=== PATIENT | male | born 1930 | race Caucasian/White ===

== ENCOUNTER 2017-11-17 17:45 | Inpatient (IN) | payer MEDICARE, OTHER ==
[~2017-11-17] VITALS: Ht 195.6 cm; Wt 90.0 kg
[~2017-11-17 17:45] MED LIST: ASPI-99 PO; BUME1TAB PO; CALC600T34 PO; EZET10 PO; HYDR10TA16 PO; METO10TA PO; MULT-65 PO; OMEGCAP2 PO; POTA25TA4 PO; VITA-13 PO; ZOLP10TA3 PO
[2017-11-17 17:57] VITALS: BP 150/69; PULSE 70; RESP 18; TEMP 98.2; O2SAT 97
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
[2017-11-17 18:49] LABS: BASOPHIL % 0.4 % (0.0-2.0); EOSINOPHIL # 0.1 TH/MM3 (0-0.4); EOSINOPHIL % 0.8 % (0.0-4.0); HEMATOCRIT 31.7 % (39.0-51.0); HEMOGLOBIN 10.6 GM/DL (13.0-17.0); LYMPH % 23.5 % (9.0-44.0); LYMPHOCYTE # 1.4 TH/MM3 (1.0-4.8); MEAN CELL VOLUME 95.4 FL (80.0-100.0); MEAN CORPUSCULAR HEMOGLOBIN 31.7 PG (27.0-34.0); MEAN CORPUSCULAR HGB CONC 33.3 % (32.0-36.0); MEAN PLATELET VOLUME 8.4 FL (7.0-11.0); MONO % 9.5 % (0.0-8.0); MONOCYTE # 0.6 TH/MM3 (0-0.9); NEUT % 65.8 % (16.0-70.0); PLATELET COUNT 143 TH/MM3 (150-450); RED BLOOD COUNT 3.32 MIL/MM3 (4.50-5.90); RED CELL DISTRIBUTION WIDTH 14.8 % (11.6-17.2); WHITE BLOOD COUNT 6.1 TH/MM3 (4.0-11.0)
[2017-11-17 18:51] LABS: BILIRUBIN, URINE NEG (NEG); BLOOD, URINE TRACE (NEG); GLUCOSE,URINE NEG (NEG); HYALINE CAST, URINE 2 /lpf (RARE); KETONE, URINE NEG (NEG); MUCUS URINE FEW /lpf (OCC); NITRITE,URINE NEG (NEG); PH, URINE 5.5 (5.0-8.5); URINE COLOR YELLOW (YELLW/STRAW); URINE LEUKOCYTE ESTERASE NEG (NEG)
[2017-11-17 19:11] LABS: ALBUMIN 4.3 GM/DL (3.4-5.0); AST (GOT) 28 U/L (15-37); BICARBONATE 20.6 MEQ/L (21.0-32.0); BLOOD UREA NITROGEN 63 MG/DL (7-18); CALCIUM 9.2 MG/DL (8.5-10.1); CHLORIDE 107 MEQ/L (98-107); CREATININE 2.69 MG/DL (0.60-1.30); GLOMERULAR FILTRATION RATE 23 ML/MIN (>89); GLUCOSE,RANDOM 75 MG/DL (74-106); SODIUM (NA) 140 MEQ/L (136-145)
[2017-11-17 19:12] LABS: ALT (GPT) 31 U/L (12-78)
[2017-11-17 19:22] LABS: ALKALINE PHOSPHATASE 77 U/L (45-117); TOTAL BILIRUBIN ADULT 1.3 MG/DL (0.2-1.0); TOTAL PROTEIN 7.3 GM/DL (6.4-8.2)
--- NOTE | 2017-11-17 21:07 | PD ---
Physical Exam Narrative Patient was seen by my operations administrative assistant and signed out to me. Data Data Last Documented VS Vital Signs Date Time Temp Pulse Resp B/P (MAP) Pulse Ox O2 Delivery O2 Flow Rate FiO2 11/17/17 18:03 70 18 11/17/17 17:57 98.2 150/69 (96) 97 Orders Orders Complete Blood Count With Diff (11/17/17 17:49) Comprehensive Metabolic Panel (11/17/17 17:49) Thyroid Stimulating Hormone (11/17/17 17:49) Urinalysis - C+S If Indicated (11/17/17 17:49) Psych Screen (11/17/17 17:49) Drug Screen, Random Urine (11/17/17 17:49) Alcohol (Ethanol) (11/17/17 17:49) Ns (Bolus) Inj (11/17/17 21:15) Labs Laboratory Tests Test 11/17/17 18:11 White Blood Count 6.1 TH/MM3 Red Blood Count 3.32 MIL/MM3 Hemoglobin 10.6 GM/DL Hematocrit 31.7 % Mean Corpuscular Volume 95.4 FL Mean Corpuscular Hemoglobin 31.7 PG Mean Corpuscular Hemoglobin Concent 33.3 % Red Cell Distribution Width 14.8 % Platelet Count 143 TH/MM3 Mean Platelet Volume 8.4 FL Neutrophils (%) (Auto) 65.8 % Lymphocytes (%) (Auto) 23.5 % Monocytes (%) (Auto) 9.5 % Eosinophils (%) (Auto) 0.8 % Basophils (%) (Auto) 0.4 % Neutrophils # (Auto) 4.0 TH/MM3 Lymphocytes # (Auto) 1.4 TH/MM3 Monocytes # (Auto) 0.6 TH/MM3 Eosinophils # (Auto) 0.1 TH/MM3 Basophils # (Auto) 0.0 TH/MM3 CBC Comment DIFF FINAL Differential Comment Urine Color YELLOW Urine Turbidity CLEAR Urine pH 5.5 Urine Specific [place] 1.010 Urine Protein NEG mg/dL Urine Glucose (UA) NEG mg/dL Urine Ketones NEG mg/dL Urine Occult Blood TRACE Urine Nitrite NEG Urine Bilirubin NEG Urine Urobilinogen LESS THAN 2.0 MG/DL Urine Leukocyte Esterase NEG Urine RBC 3 /hpf Urine Hyaline Casts 2 /lpf Urine Mucus FEW /lpf Microscopic Urinalysis Comment CULT NOT INDICATED Blood Urea Nitrogen 63 MG/DL Creatinine 2.69 MG/DL Random Glucose 75 MG/DL Total Protein 7.3 GM/DL Albumin 4.3 GM/DL Calcium Level 9.2 MG/DL Alkaline Phosphatase 77 U/L Aspartate Amino Transf (AST/SGOT) 28 U/L Alanine Aminotransferase (ALT/SGPT) 31 U/L Total Bilirubin 1.3 MG/DL Sodium Level 140 MEQ/L Potassium Level 4.2 MEQ/L Chloride Level 107 MEQ/L Carbon Dioxide Level 20.6 MEQ/L Anion Gap 12 MEQ/L Estimat Glomerular Filtration Rate 23 ML/MIN Thyroid Stimulating Hormone 3rd Gen 1.300 uIU/ML Urine Opiates Screen NEG Urine Barbiturates Screen NEG Urine Amphetamines Screen NEG Urine Benzodiazepines Screen NEG Urine Cocaine Screen NEG Urine Cannabinoids Screen NEG Ethyl Alcohol Level 106 MG/DL [facility] Supervised Visit with NANDA: Yes Interpretation(s) CBC WBC 6.1 hemoglobin 10.6 hematocrit 31.7. Platelet 143. Normal differential. Bicarb 20.6. BUN 63. Creatinine 2.69. GFR 23. Urine drug screen negative. Alcohol 106. UA is negative. Diagnosis Primary Impression: Adjustment disorder Qualified Codes: F43.25 - Adjustment disorder with mixed disturbance of emotions and conduct Additional Impression: Chronic kidney disease (CKD) stage G4/A1, severely decreased glomerular filtration rate (GFR) between 15-29 mL/min/1.73 square meter and albuminuria creatinine ratio less than 30 mg/g Condition: Stable Mack Langston MD Nov 17, 2017 21:07
[2017-11-17] MEDS ORDERED: SODIUM CHLORID 0.9% 500 ML INJ 500 ML IV ONE (21:15)
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
[2017-11-17] MEDS ORDERED: BISACODYL 10 MG SUPP RECTAL PRN (21:45)
[2017-11-17] MEDS ORDERED: SENNOSIDES 8.6 MG TAB PO PRN (21:45)
[2017-11-17] MEDS ORDERED: LACTULOSE SYRUP 20 GM/30 ML CUP PO PRN (21:45)
[2017-11-17] MEDS ORDERED: SODIUM CHLORIDE 0.9% FLUSH 10 ML FLUSH IV FLUSH PRN (21:45)
[2017-11-17] MEDS ORDERED: ACETAMINOPHEN 325 MG TAB PO PRN (21:45)
[2017-11-17] MEDS ORDERED: MAGNESIUM HYDROXIDE SUSP 30 ML CUP PO PRN (21:45)
[2017-11-17] MEDS: SODIUM CHLOR 0.9% 1000 ML INJ 1,000 ML IV SCH (21:47)
--- NOTE | 2017-11-17 21:50 | RADRPT ---
EXAM DATE: 11/17/2017 9:42 PM EDT AGE/SEX: 87 years / Male INDICATIONS: SOB CLINICAL DATA: This is the patient's initial encounter. Patient reports that signs and symptoms have been present for 1 day and indicates a pain score of 0/10. MEDICAL/SURGICAL HISTORY: . Former smoker <40 years ago. Pacemaker. Open heart surgery 2007 COMPARISON: No prior exams available for comparison. FINDINGS: Cardiomegaly present. Postoperative CABG. Pacer leads overlie right atrium and right ventricle and co ronary sinus. No pneumothorax or significant effusion. CONCLUSION: Cardiomegaly with minimal basilar atelectasis or scarring. Postoperative CABG. Electronically signed by: Naif Waggoner MD 11/17/2017 9:49 PM EDT
[2017-11-17 22:04] VITALS: BP 143/67; PULSE 70; RESP 18; O2SAT 97
[2017-11-18 00:10] VITALS: BP 161/85; PULSE 71; RESP 18; TEMP 97.6; O2SAT 99
[2017-11-18 04:15] VITALS: BP 133/66; PULSE 75; RESP 18; TEMP 97.9; O2SAT 99
[2017-11-18] MEDS: SODIUM CHLOR 0.9% 1000 ML INJ 1,000 ML IV SCH ×3 (07:15→19:37)
[2017-11-18 08:00] VITALS: BP 154/68; PULSE 83; RESP 16; TEMP 97.7; O2SAT 94
[2017-11-18] MEDS: SODIUM CHLORIDE 0.9% FLUSH 10 ML FLUSH IV FLUSH SCH ×2 (08:34→19:37)
[2017-11-18] MEDS: DOCUSATE SODIUM 50 MG/SENNA 8.6 MG TAB PO SCH ×2 (08:35→19:36)
[2017-11-18 09:40] LABS: AUTOMATED NEUTROPHIL # 3.6 TH/MM3 (1.8-7.7); BASOPHIL % 0.5 % (0.0-2.0); EOSINOPHIL # 0.1 TH/MM3 (0-0.4); EOSINOPHIL % 1.2 % (0.0-4.0); HEMATOCRIT 31.3 % (39.0-51.0); HEMOGLOBIN 10.4 GM/DL (13.0-17.0); LYMPH % 16.3 % (9.0-44.0); LYMPHOCYTE # 0.8 TH/MM3 (1.0-4.8); MEAN CELL VOLUME 95.3 FL (80.0-100.0); MEAN CORPUSCULAR HEMOGLOBIN 31.6 PG (27.0-34.0); MEAN CORPUSCULAR HGB CONC 33.2 % (32.0-36.0); MEAN PLATELET VOLUME 8.5 FL (7.0-11.0); MONO % 7.2 % (0.0-8.0); MONOCYTE # 0.3 TH/MM3 (0-0.9); NEUT % 74.8 % (16.0-70.0); PLATELET COUNT 134 TH/MM3 (150-450); RED BLOOD COUNT 3.28 MIL/MM3 (4.50-5.90); WHITE BLOOD COUNT 4.8 TH/MM3 (4.0-11.0)
[2017-11-18 10:08] LABS: ALBUMIN 3.9 GM/DL (3.4-5.0); ALKALINE PHOSPHATASE 91 U/L (45-117); ALT (GPT) 41 U/L (12-78); AST (GOT) 56 U/L (15-37); BICARBONATE 21.6 MEQ/L (21.0-32.0); BLOOD UREA NITROGEN 51 MG/DL (7-18); CALCIUM 8.9 MG/DL (8.5-10.1); CHLORIDE 111 MEQ/L (98-107); CREATININE 2.34 MG/DL (0.60-1.30); GLOMERULAR FILTRATION RATE 27 ML/MIN (>89); GLUCOSE,RANDOM 119 MG/DL (74-106); SODIUM (NA) 144 MEQ/L (136-145); TOTAL BILIRUBIN ADULT 1.6 MG/DL (0.2-1.0); TOTAL PROTEIN 6.8 GM/DL (6.4-8.2)
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
[2017-11-18 12:00] VITALS: BP 161/83; PULSE 82; RESP 16; TEMP 97.7; O2SAT 96
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
[2017-11-18 14:28] LABS: INTERNATIONAL NORMALIZED RATIO 1.1 RATIO; PROTHROMBIN TIME - PATIENT 11.6 SEC (9.8-11.6)
[2017-11-18 14:43] LABS: DIRECT BILIRUBIN ADULT 0.3 MG/DL (0.0-0.2); INDIRECT BILIRUBIN 1.3 MG/DL (0.0-0.8); TOTAL BILIRUBIN ADULT 1.6 MG/DL (0.2-1.0)
[2017-11-18 16:00] VITALS: BP 171/85; PULSE 70; RESP 16; TEMP 97.8; O2SAT 98
[2017-11-18 20:55] VITALS: BP 162/78; PULSE 70; RESP 18; TEMP 98; O2SAT 97
[2017-11-18] MEDS ORDERED: ASPI81TA23 PO ×2 (21:17)
[2017-11-18] MEDS ORDERED: BUME1TAB PO ×2 (21:19)
[2017-11-18] MEDS ORDERED: CALC500T8 PO ×2 (21:22)
[2017-11-18] MEDS ORDERED: D31000TA PO ×2 (21:24)
[2017-11-18] MEDS ORDERED: ZOLP10TA3 PO ×2 (21:25)
[2017-11-18] MEDS ORDERED: VITA250T3 PO ×2 (21:26)
[2017-11-18] MEDS ORDERED: ZOLPIDEM TARTRATE 10 MG TAB PO PRN (23:15)
[2017-11-19 00:15] VITALS: BP 112/57; PULSE 69; RESP 17; TEMP 97.7; O2SAT 95
[2017-11-19] MEDS: SODIUM CHLOR 0.9% 1000 ML INJ 1,000 ML IV SCH (02:16)
[2017-11-19 04:55] VITALS: BP 130/62; PULSE 70; RESP 17; TEMP 97.8; O2SAT 94
[2017-11-19 08:00] VITALS: BP 116/57; PULSE 68; RESP 18; TEMP 98.2; O2SAT 94
[2017-11-19] MEDS: SODIUM CHLORIDE 0.9% FLUSH 10 ML FLUSH IV FLUSH SCH (08:35)
[2017-11-19] MEDS: DOCUSATE SODIUM 50 MG/SENNA 8.6 MG TAB PO SCH (08:36)
--- NOTE | 2017-11-19 09:40 | HHI.PR ---
Subjective Remarks Patient states that he wants to be able to go home. He has no thoughts of wanting to kill himself or harm anybody. He has no complaints of abdominal pain or problem urinating. Objective Vitals Vital Signs Date Time Temp Pulse Resp B/P (MAP) Pulse Ox O2 Delivery O2 Flow Rate FiO2 11/19/17 08:05 Room Air 11/19/17 08:00 98.2 68 18 116/57 (76) 94 11/19/17 04:55 97.8 70 17 130/62 (84) 94 11/19/17 00:15 97.7 69 17 112/57 (75) 95 11/18/17 20:55 98.0 70 18 162/78 (106) 97 11/18/17 16:00 97.8 70 16 171/85 (113) 98 11/18/17 12:00 97.7 82 16 161/83 (109) 96 I/O 11/18/17 11/18/17 11/18/17 11/19/17 11/19/17 11/19/17 07:00 15:00 23:00 07:00 15:00 23:00 Intake Total 140 ml 480 ml 1882 ml 2120 ml Output Total 600 ml Balance 140 ml 480 ml 1882 ml 1520 ml Intake Oral 140 ml 480 ml 720 ml IV Total 1882 ml 1400 ml Output Urine Total 600 ml # Voids 1 3 3 # Bowel Movements 1 0 Result Diagram: 11/18/17 0911 11/18/17 0911 Objective Remarks GENERAL: This is a well-nourished, well-developed patient, in no apparent distress. CARDIOVASCULAR: Regular rate and rhythm RESPIRATORY: Clear to auscultation. Breath sounds equal bilaterally. No wheezes , rales, or rhonchi. GASTROINTESTINAL: Abdomen soft, non-tender, nondistended. Normal active bowel sounds MUSCULOSKELETAL: Extremities without clubbing, cyanosis, or edema. NEURO: Alert & Oriented x2 to person, place . Moves all ext x4 A/P Problem List: (1) CHEN (acute kidney injury) ICD Code: N17.9 - Acute kidney failure, unspecified Status: Acute (2) Suicidal ideation ICD Code: R45.851 - Suicidal ideations Status: Resolved (3) HTN (hypertension) ICD Code: I10 - Essential (primary) hypertension Status: Chronic (4) Anemia ICD Code: D64.9 - Anemia, unspecified Status: Chronic Assessment and Plan 1. CHEN: Likely superimposed on chronic kidney disease stage III, and is unknown what his current baseline is admitting creatinine 2.69, previously 1.02 on 11/24/12, GFR 23, likely secondary to dehydration. no further recent creatinine available. U/a negative for UTI. Dr. Brown consulted by ER physician, recommended admission for IVF Monitor I/O, IVF for hydration, repeat labs pending 2. HTN, chronic essential: Uncontrolled. BP 150's systolic, unclear what home medications pt takes, will monitor, antihypertensives as needed for BP >180 , will initiate Norvasc for better control 3. Anemia: Acute on Chronic kidney disease. Hgb 10.6, previously 11.4 on 11/24, no active bleeding, will monitor closely, repeat labs currently pending, transfuse as needed for Hgb <7 4. Suicidal Ideation: Brought to ER by Police under Jordan Act for threatening to kill himself with a gun, per psychiatry transfer to inpatient psychiatry for further treatment. 5. DVT Prophylaxis: SCDs/teds. Discharge Planning Discharge to inpatient psychiatry Continue IV fluid hydration for a more 1 L bag Condition on discharge: Improved heart healthy diet as tolerated Ad Silvina activity Rx written: Amlodipine Follow-up with primary care physician Follow-up with psychiatry Problem Qualifiers (1) HTN (hypertension): Qualified Codes: I10 - Essential (primary) hypertension (2) Anemia: Qualified Codes: N18.3 - Chronic kidney disease, stage 3 (moderate); D63.1 - Anemia in chronic kidney disease Lori Villar MD Nov 19, 2017 09:40
[2017-11-19] MEDS ORDERED: AMLO2.5T PO (09:42)
[2017-11-19] MEDS ORDERED: amLODIPine BESYLATE 5 MG TAB PO ONE (10:15)
[2017-11-19] MEDS ORDERED: PILL SPLITTER OTHER PRN (10:15)
[2017-11-19 12:00] VITALS: BP 135/73; PULSE 69; RESP 18; TEMP 97.9; O2SAT 97
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
[2017-11-19 16:00] VITALS: BP 158/75; PULSE 70; RESP 18; TEMP 98; O2SAT 97
[2017-11-20] MEDS ORDERED: amLODIPine BESYLATE 5 MG TAB PO SCH (09:00)
== END 2017-11-19 18:54 | DRG 683 ==
LOC: NEPD 17:45 → NEDA 21:26 → N06A 11-18 00:10
PROVIDERS: ADMIT Hospitalist; ATTEND Hospitalist
DX: N17.9 Acute kidney failure, unspecified (principal); R45.851 Suicidal ideations; I13.0 Hypertensive heart and chronic kidney disease with heart failure and stage 1 through stage 4 chronic kidney disease, or unspecified chronic kidney disease; I50.9 Heart failure, unspecified; N18.4 Chronic kidney disease, stage 4 (severe); I25.10 Atherosclerotic heart disease of native coronary artery without angina pectoris; D63.1 Anemia in chronic kidney disease; E78.5 Hyperlipidemia, unspecified; E86.0 Dehydration; R41.89 Other symptoms and signs involving cognitive functions and awareness; F43.25 Adjustment disorder with mixed disturbance of emotions and conduct; Z85.46 Personal history of malignant neoplasm of prostate; Z87.891 Personal history of nicotine dependence; Z92.3 Personal history of irradiation; Z95.0 Presence of cardiac pacemaker; Z95.1 Presence of aortocoronary bypass graft; Z95.2 Presence of prosthetic heart valve
CPT/HCPCS: 71045; 80053; 80307; 81001; 82247; 82248; 83880; 84443; 85025; 85610; 99285; J7030; J7040

== ENCOUNTER 2017-11-19 17:16 | Inpatient (IN) | payer MEDICARE, OTHER ==
[~2017-11-19] VITALS: Ht 195.6 cm; Wt 86.0 kg
[~2017-11-19 17:16] MED LIST changes: +AMLO2.5T PO; +ASPI81TA23 PO; +CALC500T8 PO; +D31000TA PO; +VITA250T3 PO
[2017-11-19 18:30] VITALS: BP 170/81; PULSE 69; RESP 17; TEMP 97.9; O2SAT 96
[2017-11-19] MEDS ORDERED: LORazepam 2 MG/ML VIAL IM PRN ×4 (21:15)
[2017-11-19] MEDS ORDERED: ALUMINUM/MAGNESIUM/SIMETH 30 ML CUP PO PRN ×2 (21:15)
[2017-11-19] MEDS ORDERED: LORazepam 1 MG TAB PO PRN ×2 (21:15)
[2017-11-19] MEDS ORDERED: LORazepam 0.5 MG TAB PO PRN ×2 (21:15)
[2017-11-19] MEDS ORDERED: ACETAMINOPHEN 325 MG TAB PO PRN ×2 (21:15)
[2017-11-19] MEDS ORDERED: MAGNESIUM HYDROXIDE SUSP 30 ML CUP PO PRN ×2 (21:15)
[2017-11-20 06:07] VITALS: BP 152/80; PULSE 79; RESP 18; TEMP 98; O2SAT 94
[2017-11-20] MEDS ORDERED: NICOTINE 21 MG/24 HR PATCH T-DERMAL SCH ×2 (09:00)
[2017-11-20 09:39] LABS: BICARBONATE 21.6 MEQ/L (21.0-32.0); BLOOD UREA NITROGEN 26 MG/DL (7-18); CALCIUM 8.5 MG/DL (8.5-10.1); CHLORIDE 113 MEQ/L (98-107); CHOLESTEROL 124 MG/DL (120-200); CREATININE 1.71 MG/DL (0.60-1.30); GLOMERULAR FILTRATION RATE 38 ML/MIN (>89); GLUCOSE,RANDOM 102 MG/DL (74-106); HDL CHOLESTEROL 49.6 MG/DL (40.0-60.0); LDL CHOLESTEROL 55 MG/DL (0-99); SODIUM (NA) 144 MEQ/L (136-145); TRIGLYCERIDES 97 MG/DL (42-150)
[2017-11-20] MEDS ORDERED: PILL SPLITTER OTHER PRN (12:15)
--- NOTE | 2017-11-20 12:15 | HHI.HP ---
Provisional Diagnosis Admission Date Nov 19, 2017 at 20:01 [place]. Adjustment disorder with mixed disturbances of emotion and conduct, alcohol intoxication Certification of Person's Competence To Provide Express and Informed Consent I have personally examined Connie Vang , a person being served at [facility] on, Nov 20, 2017 11:47. Express and informed consent means consent voluntarily given in writing, by a competent person, after sufficient explanation and disclosure of the subject matter involved to enable the person to make a knowing and willful decision without any element of force, fraud, deceit, duress, or other form of constraint or coercion. This person is 18 years of age or older, is not now known to be incompetent to consent to treatment with a guardian advocate, and does not have a health care surrogate or proxy currently making medical treatment decisions. I have found this person to be one of the following: [xxx] Competent to provide express and informed consent, as defined above, for voluntary admission to this facility and is competent to provide express and informed consent for treatment. He/she has the consistent capacity to make well reasoned, willful, and knowing decisions concerning his or her medical or mental health treatment. The person fully and consistently understands the purpose of the admission for examination/placement and is fully capable of personally exercising all rights assured [place] Incompetent to provide express and informed consent to voluntary admission, and this is incompetent to provide express and informed consent to treatment. The person must be transferred to involuntary status and a petition for a guardian advocate filed with the Circuit Court. [] Refusing to provide express and informed consent to voluntary admission but is competent to provide express and informed consent for treatment. The person must be discharged or transferred to involuntary status. Form shall be completed within 24 hours of a person's arrival at the receiving facility and filed in the clinical record of each person: 1. Admitted on a voluntary basis 2. Permitted to provide express and informed consent to his/her own treatment 3. Allowed to transfer from involuntary to voluntary status 4. Prior to permitting a person to consent to his or her own treatment after having been previously found incompetent to consent to treatment. History of Present Illness Capacity: Has Capacity HPI Patient is an 87-year-old white male was initially admitted to the medical service 02/26 through 11/19/17 with visit [id number] during that visit patient was psychiatrically consulted by Dr. Collins Jordan acted by the [employer] on 11/27/2017 at 5:05 PM that document reviewed essentially states that patient suffers from short term memory loss made several statements that if he had a gun he would shoot himself he refuses to seek mental health treatment for himself patient seen and screened in the ED urine toxicology negative blood alcohol level of 109. Patient seen in the day room with nurse Joel and medical student [place]. Patient is alert and oriented white male appears somewhat younger than his stated age. He is calm and cooperative with me does acknowledge a long history of squabbling with his of 65 years. He denies suicidality and homicidality voices or visions. He does acknowledge having a couple of cocktails" in the afternoon that appears to be daily in nature. He denies any legal issues with this denies any DUIs or continuance. He denies any other drug use. Denies any past psychiatric history of hospitalizations or psychotropic medications. He is vague about any prior physical and/or sexual abuse. He says he did spend time in the during the [place] but did not see combat. He is as mentioned for 65 years has 3 adult children at this time patient does not meet Jordan act criteria. We have also visited with the patient's son who is here to see his father. He agrees that is safe with his father coming home with him. He verifies at the marriage has been somewhat contentious with bickersonian flavor to the relationship. He also acknowledged that his mom and dad would have a couple of "cocktails" every afternoon. Need event patient will be discharged today to his son no Rx by me he may continue his own home medications and follow up with her PCP I also called patient's Isabella at [phone] She verifies patient's daily drinking and the fact that they have had some increased difficulties recently with coping with each other. She also feels positive that the patient will be going home with her son for a period of time. She is also quite willing to go to counseling to help support their relationship. Thus patient will be discharged today with no Rx by me the follow -up with his PCP I would also recommend absolute abstinence though perhaps our be satisfied if they only had 1 drink daily approach Review of Systems Except as stated in HPI: all other systems reviewed are Neg Past Psych History Psychological trauma history Patient denies at this time Violence risk - others (6 mos) Patient was given aggressive towards his while he was intoxicated Violence risk - self (6 mos) Low to moderate Substance Abuse History Drugs/Alcohol past 12 months Patient active alcohol abuser Past Family Social History Coded Allergies: No Known Allergies (Unverified Allergy, Unknown, 11/17/17) Active Scripts Amlodipine (Amlodipine) 2.5 Mg Tab, 2.5 MG PO DAILY for Blood Pressure Management, #30 TAB 0 Refills Prov:Lori Villar MD 11/19/17 Reported Medications Ascorbic Acid (Vitamin C) 250 Mg Tab, 250 MG PO DAILY for Nutritional Supplement , TAB 0 Refills 11/18/17 Zolpidem (Zolpidem) 10 Mg Tab, 10 MG PO HS Y for INSOMNIA, TAB 0 Refills 11/18/17 Cholecalciferol (D3) 1,000 Unit Tab, PO DAILY 11/18/17 Calcium Carbonate (Calcium Oyster Shell) 1,250 Mg Tab, 600 MG PO DAILY for Calcium Supplement, TAB 0 Refills 1,250 mg calcium carbonate (500 mg elemental calcium) 11/18/[address] (Aspirin EC) 81 Mg Tabdr, 81 MG PO DAILY, TAB 0 Refills 11/18/17 Discontinued Reported Medications Bumetanide (Bumetanide) 1 Mg Tab, 1 MG PO DAILY, #30 TAB 0 Refills 11/18/17 Cholecalciferol (Vitamin D3) 1,000 Unit Tab, 1000 UNIT PO DAILY 11/24/12 Docosahexaenoic Acid-Eicosapen ([place]-3) Cap, 1 CAP PO DAILY 11/24/12 Multiple Vitamin (Multi-Vitamin Daily) Daily Tab, 1 TAB PO DAILY 11/24/12 Zolpidem Tartrate (Ambien 10 Mg Tab) 10 Mg Tab, 10 MG PO HS 11/24/12 Calcium (Calcium) 600 Mg Tab, 600 MG PO DAILY 11/24/12 Aspirin (Aspirin) 81 Mg Tab, 81 MG PO DAILY 11/24/12 Hydrocodone-Acetaminophen (Lortab 10/500) 10 Mg/500 Mg Tab, 1 TAB PO Q4HPRN FOR PAIN 11/24/12 Bumetanide 1 Mg (Bumetanide 1 Mg) 1 Mg Tab, 1 MG PO DAILYPRN 11/24/12 Metolazone (Metolazone) 10 Mg Tab, 10 MG PO DAILYPRN 11/24/12 Ezetimibe (Zetia) 10 Mg Tab, 10 MG PO HS 11/24/12 Discontinued Scripts Potassium Bicarbonate (K-Lyte) 25 Meq Tabef, 50 MEQ PO ONCE, #2 Prov:Willy Shin MD 11/24/12 Current Medications Medications (Trade) Dose Ordered Sig/Shayla Route Start Time Stop Time Status Last Admin (Ativan) 1 mg Q6H PRN PO 11/19/17 21:15 (Ativan Inj) 1 mg Q6H PRN IM 11/19/17 21:15 (Ativan) 0.5 mg Q12H PRN PO 11/19/17 21:15 (Ativan Inj) 0.5 mg Q12H PRN IM 11/19/17 21:15 (Tylenol) 650 mg Q4H PRN PO 11/19/17 21:15 (Milk Of Magnesia Liq) 30 ml DAILY PRN PO 11/19/17 21:15 (Mag-Al Plus Susp Liq) 30 ml Q6H PRN PO 11/19/17 21:15 (Habitrol 21 Mg Patch.24 Hr) 1 patch DAILY T-DERMAL 11/20/17 09:00 Family Psych History History of mental health issues and alcohol abuse in maternal family Social History Patient lives with his of 65 years they are both active drinkers but otherwise has not had a drink for a month due to medical issues Patient's Strengths (min. 2) Patient verbal cooperative Physical Exam Patient medically cleared through the past medical admission as mentioned above at the present time patient sitting quietly in the day room he is in no acute distress, he is in no respiratory distress, no complaints of chest pain, no complaints of abdominal pain, patient moving all 4 extremities without difficulty Vital Signs Vital Signs Date Time Temp Pulse Resp B/P (MAP) Pulse Ox O2 Delivery O2 Flow Rate FiO2 11/20/17 06:07 98.0 79 18 152/80 (104) 94 I/O 11/20/17 11/20/17 11/21/17 08:00 16:00 00:00 Intake Total 120 ml Balance 120 ml Lab Results Test 11/20/17 07:43 Blood Urea Nitrogen 26 MG/DL Creatinine 1.71 MG/DL Random Glucose 102 MG/DL Calcium Level 8.5 MG/DL Sodium Level 144 MEQ/L Potassium Level 4.1 MEQ/L Chloride Level 113 MEQ/L Carbon Dioxide Level 21.6 MEQ/L Anion Gap 9 MEQ/L Estimat Glomerular Filtration Rate 38 ML/MIN Triglycerides Level 97 MG/DL Cholesterol Level 124 MG/DL LDL Cholesterol 55 MG/DL HDL Cholesterol 49.6 MG/DL Cholesterol/HDL Ratio 2.50 RATIO Mental Status Examination Appearance: Appropriate Consciousness: Alert Orientation: Person, Place, Date/Time Motor Activity: Normal gait Speech: Unremarkable Language: Adequate Fund of Knowledge: Adequate Attention and Concentration: Easily Distracted Memory: Unremarkable (Fair) Mood: Other (Euthymic to mildly dysphoric) Affect: Other (Good range and intensity) Thought Process & Associations: Intact Thought Content: Appropriate Hallucination Type: None Delusion Type: None Suicidal Ideation: No Suicidal Plan: No Suicidal Intention: No Homicidal Ideation: No Homicidal Plan: No Homicidal Intention: No Insight: Fair Judgment: Impulsive Assessment & Plan Problem List: (1) Alcohol intoxication ICD Codes: F10.929 - Alcohol use, unspecified with intoxication, unspecified (2) Adjustment disorder with mixed disturbance of emotions and conduct ICD Codes: F43.25 - Adjustment disorder with mixed disturbance of emotions and conduct Assessment & Plan Estimated LOS: days at this time patient does not meet Jordan act criteria lift Jordan act patient to be discharged to his son to follow-up with the PCP, no Rx by me, he may continue his own home scheduled medications, also recommend striving towards absolute sobriety Discharge Planning Patient to be discharged to his son to follow-up with a PCP Request HC Surrog/Guard Advoc?: No Surya Paz MD Nov 20, 2017 12:15
--- NOTE | 2017-11-20 12:22 | HHI.DS ---
Psychiatry Discharge Summary Inpatient Psychiatric care?: Yes Advance Directive: No Reason Not Provided: Due to Patient Condition Mental Health AdvanceDirective: No Health Care Proxy: No Admission Admission Date Nov 19, 2017 at 20:01 Admission Diagnosis: (1) Adjustment disorder with mixed disturbance of emotions and conduct ICD Code: F43.25 - Adjustment disorder with mixed disturbance of emotions and conduct (2) Alcohol intoxication ICD Code: F10.929 - Alcohol use, unspecified with intoxication, unspecified Brief History Patient is an 87-year-old white male was initially admitted to the medical service 02/26 through 11/19/17 with visit [id number] during that visit patient was psychiatrically consulted by Dr. Collins Jordan acted by the [place] [employer] on 11/27/2017 at 5:05 PM that document reviewed essentially states that patient suffers from short term memory loss made several statements that if he had a gun he would shoot himself he refuses to seek mental health treatment for himself patient seen and screened in the ED urine toxicology negative blood alcohol level of 109. Patient seen in the day room with nurse [place] and medical student [place]. Patient is alert and oriented white male appears somewhat younger than his stated age. He is calm and cooperative with me does acknowledge a long history of squabbling with his of 65 years. He denies suicidality and homicidality voices or visions. He does acknowledge having a couple of cocktails" in the afternoon that appears to be daily in nature. He denies any legal issues with this denies any DUIs or continuance. He denies any other drug use. Denies any past psychiatric history of hospitalizations or psychotropic medications. He is vague about any prior physical and/or sexual abuse. He says he did spend time in the during the [place] War but did not see combat. He is as mentioned for 65 years has 3 adult children at this time patient does not meet Jordan act criteria. We have also visited with the patient's son who is here to see his father. He agrees that is safe with his father coming home with him. He verifies at the marriage has been somewhat contentious with bickersonian flavor to the relationship. He also acknowledged that his mom and dad would have a couple of "cocktails" every afternoon. Need event patient will be discharged today to his son no Rx by me he may continue his own home medications and follow up with her PCP I also called patient's Isabella at [phone] She verifies patient's daily drinking and the fact that they have had some increased difficulties recently with coping with each other. She also feels positive that the patient will be going home with her son for a period of time. She is also quite willing to go to counseling to help support their relationship. Thus patient will be discharged today with no Rx by me the follow -up with his PCP I would also recommend absolute abstinence though perhaps our be satisfied if they only had 1 drink daily approach Tobacco Use In Past 30 Days: No Tobacco Past 30 Days Alcohol Use: 4 or More Times Per Week Hospital Course Please see above note under brief history. Patient alert and oriented, cooperative denying suicidality or homicidality voice or visions. We also visited with patient's son, and discussed this with patient's . Patient longer meets Jordan act criteria with Jordan act patient to be discharged to his son will be staying with his son for a while, recommending outpatient counseling for the relationship. The absolute sobriety Results Blood Pressure 152 / 80 Vital Signs Date Time Temp Pulse Resp B/P (MAP) Pulse Ox O2 Delivery O2 Flow Rate FiO2 11/20/17 06:07 98.0 79 18 152/80 (104) 94 Laboratory Tests Test 11/20/17 07:43 Blood Urea Nitrogen 26 MG/DL (7-18) Creatinine 1.71 MG/DL (0.60-1.30) Chloride Level 113 MEQ/L (98-107) Estimat Glomerular Filtration Rate 38 ML/MIN (>89) Laboratory Results Test 11/20/17 07:43 Cholesterol Level 124 MG/DL (120-200) HDL Cholesterol 49.6 MG/DL (40.0-60.0) LDL Cholesterol 55 MG/DL (0-99) Triglycerides Level 97 MG/DL (42-150) Summary of Procedures None done Pending results at discharge: No Medications # of Antipsychotic meds at D/C: 0 Approp Antipsych med options 1 - Minimum of three failed multiple trials of monotherapy. 2 - Documented plan to taper to monotherapy due to previous use of multiple meds OR cross-taper in progress at D/C. 3 - Documentation of augmentation of Clozapine. 4 - Justification other than those listed in allowable values 1-3, document here : Discharge Discharge Date: Nov 20, 2017 Discharge Diagnosis: (1) Adjustment disorder with mixed disturbance of emotions and conduct Diagnosis: Principal ICD Code: F43.25 - Adjustment disorder with mixed disturbance of emotions and conduct (2) Alcohol intoxication Diagnosis: Secondary ICD Code: F10.929 - Alcohol use, unspecified with intoxication, unspecified Pt Condition on Discharge: Stable Discharge Disposition: Discharge Home Discharge Instructions Diet Instructions: As Tolerated, No Restrictions Activities you can perform: Regular-No Restrictions Scheduled Appointment: PCP Appointment Date: Nov 29, 2017 Appointment Time: 12:00pm Discharge Time > 30 minutes Mental Status Examination Appearance: Appropriate Consciousness: Alert Orientation: Person, Place, Date/Time Motor Activity: Normal gait Speech: Unremarkable Language: Adequate Fund of Knowledge: Adequate Attention and Concentration: Easily Distracted Memory: Unremarkable (Fair) Mood: Other (Euthymic to mildly dysphoric) Affect: Other (Good range and intensity) Thought Process & Associations: Intact Thought Content: Appropriate Hallucination Type: None Delusion Type: None Suicidal Ideation: No Suicidal Plan: No Suicidal Intention: No Homicidal Ideation: No Homicidal Plan: No Homicidal Intention: No Insight: Fair Judgment: Impulsive Discharge/Advance Care Plan Health Problems: (1) Alcohol intoxication (2) Adjustment disorder with mixed disturbance of emotions and conduct Goals to promote your health * To prevent worsening of your condition and complications * To maintain your health at the optimal level Directions to meet your goals Take your medications as prescribed Follow your dietary instruction Follow activity as directed Keep your appointments as scheduled Take your immunizations and boosters as scheduled If your symptoms worsen call your PCP, if no PCP go to Urgent Care Center or Emergency Room For 01/01 questions related to your inpatient stay or results of tests pending at discharge, please contact Dr. Surya Paz at Smoking is Dangerous to Your Health. Avoid second hand smoking Surya Paz MD Nov 20, 2017 12:21
[2017-11-20 16:52] LABS: HEMOGLOBIN A1C 5.7 % (4.3-6.0)
[2017-11-21] MEDS ORDERED: amLODIPine BESYLATE 5 MG TAB PO SCH (09:00)
[2017-11-21] MEDS ORDERED: ASPIRIN EC 81 MG TABEC PO SCH (09:00)
[2017-11-21] MEDS ORDERED: CALCIUM CARBONATE 1.25 GM (CA 500 MG) TAB PO SCH (09:00)
[2017-11-21] MEDS ORDERED: ASCORBIC ACID 500 MG TAB PO SCH (09:00)
== END 2017-11-20 14:20 | disposition home or self-care (01) | DRG 882 ==
LOC: H250 20:01 → UNDOADMIN 20:01
PROVIDERS: ADMIT Psychiatry & Neurology Psychiatry; ATTEND Psychiatry & Neurology Psychiatry
DX: F43.25 Adjustment disorder with mixed disturbance of emotions and conduct (principal); F10.129 Alcohol abuse with intoxication, unspecified; Y90.5 Blood alcohol level of 100-119 mg/100 ml; Z79.82 Long term (current) use of aspirin
CPT/HCPCS: 80048; 80061; 83036